=== PATIENT | female | born 1980 | race Caucasian/White ===

== ENCOUNTER 2018-07-19 10:51 | Emergency (ER) | payer BC ==
--- OUTSIDE RECORDS SUMMARY | 2018-07-19 10:56 | XMS REPORT | Continuity of Care Document ---
:1980 External Reference #:[id number] Author Name Brianna Ram Care Team Providers Name Role Phone Amita Juárez M.D. Primary Care Physician Unavailable Payers Type Date Identification Numbers Payment Provider Subscriber Policy Number: [id number] [facility] Gloria John PayID: [id number] [address] [address] [place] [address] Policy Number: [id number] Cont: 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 Use Rarely consumes alcohol Tobacco Use Start: Unknown Patient has never smoked Recreational Drug Use Denies Drug Use Smoking Status Reviewed: 07/16/18 Patient has never smoked Allergies, Adverse Reactions, Alerts Date Description Reaction Status Severity Comments 07/16/2018 Morphine rash Active Medications Medication Date Status Form Strength Qnty SIG Indications Ordering Provider Escitalopram Active Tablets 10mg 30tabs one po F33.1 Amita Oxalate 018 daily MD Franck Vitamin 0 Active Tablets 28-0.8mg 1 by Unknown And Mineral 000 mouth every day Famotidine 0 Active Tablets 20mg 1 by Unknown 000 mouth every day Acetaminophen 0 Active Tablets 500mg 2 by Unknown 000 mouth twice a day Celecoxib 0 Active Capsules 200mg 1 by Unknown 000 mouth every day Immunizations Description No Information Available Vital Signs Date Vital Result Comment 07/16/2018 8:56am Height 60 inches 5'0" Weight 103.50 lb Heart Rate 75 /min BP Systolic Sitting 90 mmHg regular adult cuff left arm BP Diastolic Sitting 70 mmHg regular adult cuff left arm O2 % BldC Oximetry 98 % at rest on room air BMI (Body Mass Index) 20.2 kg/m2 Results Description No Information Available Procedures Description No Information Available Encounters Description No Information Available Plan of Treatment Future Appointment(s):08/27/2018 8:20 am - Amita Juárez MD at [facility] - [address]07/16/2018 - Amita Juárez MDG43.009 Migraine without aura, not intractable, without status migraComments:For your migraine headaches: Magnesium 500 at bedtimeVitamin B2 200mg qxrapW76.59 Other disorders of calcium yjvyvwlqxcL52.1 Major depressive disorder, recurrent, moderateNew Medication: Escitalopram Oxalate 10 mg - one po dailyComments:Current choice of daily preventative medication is LexaproPlease consider getting a therapy lampReviewed PHQ9, discussed with patient. The best chance of full treatment of depression is with medicationsuch as an SSRI combined with talk therapy. Please sign a release that will allow us to talk to your therapist.You can also benefit from regular exercise, spending time out of doors, with plenty of sunlight, and a healthy, balanced diet.Avoid over-use of alcohol and other substances such pain medications, marijuana, as these can worsen depression.Patient accepts referral to [facility], [facility]If you are feeling more at risk of harming yourself , please callthe Suicide Prevention hotline at [phone].Blood tests for metabolic causes of depression including thyroid (TSH,) vitamin B12 deficiency ( ordered or reviewed.)Follow up:Make follow-up appointment in 6 vvstsG89.00 Separation of muscle (nontraumatic), unspecified siteNew Therapy:Physical Therapy
[2018-07-19 10:58] VITALS: BP 125/74
--- NOTE | 2018-07-19 11:24 | UC ---
Back Pain HPI - HPI Summary HPI Summary: This AM was carrying toddler who is approx 40lbs and felt a sudden R lower back pain. Had difficulty walking. Has hx of lower herniated discs, 2016 MRI. She states it feels exactly how her pain felt in 2016. denies saddle paresthesia, urinary incontinence, numbness in LE. Feels lower back spasms very strongly. - History of Current Complaint Chief Complaint: UCBackPain Stated Complaint: BACK INJURY Time Seen by Provider: 07/19/18 11:00 Hx Obtained From: Patient Hx Last Menstrual Period: breat feeding ?: No Onset/Duration: Sudden Onset Timing: Constant Severity Initially: Moderate Severity Currently: Moderate Pain Intensity: 7 Pain Scale Used: 0-10 Numeric Back Pain: Is Discrete @ - R lower back Character: Sharp Aggravating Factor(s): Movement, Walking Alleviating Factor(s): Nothing Related History: Previous Back Injury - Allergies/Home Medications Allergies/Adverse Reactions: Allergies Allergy/AdvReac Type Severity Reaction Status Date / Time morphine Allergy Rash Verified 07/19/18 10:59 Home Medications: Home Medications B2/Magnesium Cit,Oxid/Feverfew 1 tab PO DAILY 07/19/18 [History Confirmed ] Escitalopram Oxalate [Lexapro 10 mg] 10 mg PO DAILY 07/19/18 [History Confirmed 07/19/18] Magnesium Oxide [Mag-Oxide] 200 mg PO DAILY 07/19/18 [History Confirmed 07/19/18 ] PMH/Surg Hx/FS Hx/Imm Hx - Additional Past Medical History Additional PMH: herniated discs Previously Healthy: Yes - Surgical History Surgical History: Yes Surgery Procedure, Year, and Place: oral - Social History Alcohol Use: None Substance Use Type: None Smoking Status (MU): Never Smoked Tobacco Review of Systems All Other Systems Reviewed And Are Negative: Yes Constitutional: Positive: Negative Skin: Positive: Negative Respiratory: Positive: Negative Cardiovascular: Positive: Negative Musculoskeletal: Positive: Other: - +BACK PAIN Neurological: Positive: Negative Is Patient Immunocompromised?: No Physical Exam Triage Information Reviewed: Yes Appearance: Well-Appearing Vital Signs: Initial Vital Signs Temp 97.8 F 07/19/18 10:55 Pulse 68 07/19/18 10:55 Resp 16 07/19/18 10:55 BP 125/74 07/19/18 10:55 Pulse Ox 100 07/19/18 10:55 Vital Signs Reviewed: Yes Respiratory Exam: Normal Cardiovascular Exam: Normal Musculoskeletal: Positive: Strength Limited @ - lower back, ROM Limited @ - lower back, Other: - pain w/ walking. pain upon palpation at R lower back. Skin Exam: Normal Diagnostics - Radiology No standard instances Radiology Interpretation Completed By: Radiologist Summary of Radiographic Findings: Attending Doctor: Jimbo Nelson ([id number]) . Telephone Station Repairer: Omkar Winters ([id number]). Surveillance Supervisor: [place] (NUANCE ). Report Date: 07/19/2018 11:19:00. Report Status: Final. ====== Begin of Report Content . Patient Name : AMADOU LUCIA Medical Record#: [id number]. Ordering Physician: Rosa RAYO Acct.#: [id number]. : 1980 Age: 38 Sex: F Location: [facility]. Exam Date: 07/19/18 1119 ADM Status: REG ER. Order Information : SP LUMBAR AP/LAT 2-3 VIEWS. Accession Number: [id number]. CPT: 65226. HISTORY: sudden lower back pain. COMPARISONS: None. VIEWS: 3 , Frontal, lateral, and coned-down lateral sacral views of the lumbar spine. FINDINGS: ALIGNMENT: There is straightening of the normal lumbar lordosis. VERTEBRAL BODIES: The vertebral body heights are normal. The interpedicular distances are. normal. JOINTS: The facet joints are normal. INTERVERTEBRAL DISCS: There is mild diffuse loss of intervertebral disc height. SOFT TISSUE: There are multiple calculi overlying the right renal parenchymal shadow. including a 1.3 cm calculus of the lower pole. OTHER: The pelvis is unremarkable. The lung bases are clear. IMPRESSION: STRAIGHTENING OF THE LUMBAR LORDOSIS. RIGHT NEPHROLITHIASIS. . <Electronically signed by Omkar Winters MD in [place]> 12/13/18 1156. Dictated By: Omkar Winters MD. Dictated Date/Time: 07/19/18 115. Transcribed Date/Time: 07/19/18 115. Copy to: CC:Amita Juárez MD; Rosa RAYO; Jimbo Nelson MD. Imaging - [facility] - [facility] - [facility]. [address] [place] [address]. ph ([phone]) ph ([phone]) ph ([phone]). End of Report Content Back Pain Course/Dx - Course Course Of Treatment: Sudden lower back pain after lifting child. Spasming moderate and cyclobenzaprine rx'd. No signs of radiculopathy although pt has a hx of this. Plan is to obtain first step of imaging w/ the hopes she gets a f/u MRI outpt. - Differential Dx/Diagnosis Differential Diagnosis/HQI/PQRI: Herniated Disc, Strain, Sprain Provider Diagnosis: Low back strain Discharge - Sign-Out/Discharge Documenting (check all that apply): Patient Departure All imaging exams completed and their final reports reviewed: Yes - Discharge Plan Condition: Good Disposition: HOME Prescriptions: Cyclobenzaprine (NF) [Cyclobenzaprine 5 MG (NF)] 5 mg PO TID PRN #9 tab PRN Reason: Pain methylPREDNISolone [Medrol] 4 mg PO DAILY #5 tab.ds.pk Patient Education Materials: Low Back Strain (ED) Forms: *Work Release Referrals: Amita Juárez MD [Primary Care Provider] - Additional Instructions: Consider a f/u MRI from 2016. Breast-Feeding Considerations It is not known if cyclobenzaprine is excreted in breast milk. Because cyclobenzaprine is closely related to tricyclic antidepressants, some of which are excreted in breast milk, the icu tech recommends that caution be exercised when administering cyclobenzaprine to women. - Billing Disposition and Condition Condition: GOOD Disposition: Home
[2018-07-19] MEDS ORDERED: Cyclobenzaprine TAB* 10 MG PO ONE (12:05)
== END 2018-07-19 12:15 | disposition home or self-care (01) ==
LOC: UCEAST 10:51
DX: S39.012A Strain of muscle, fascia and tendon of lower back, initial encounter (principal); X50.0XXA Overexertion from strenuous movement or load, initial encounter; Y93.89 Activity, other specified; Y92.9 Unspecified place or not applicable; Z88.5 Allergy status to narcotic agent
CPT/HCPCS: 72100; 99212; A9270-GY; G0463

== ENCOUNTER 2019-10-03 13:44 | Emergency (ER) | payer BC, OTHER ==
--- OUTSIDE RECORDS SUMMARY | 2019-10-03 13:58 | XMS REPORT | Continuity of Care Document ---
:1980 External Reference #:[id number] Author Name Barbara Pimentel MD (transmitted by agent of provider Rosa Jane) Address [address] [place] [address] Care Team Providers Name Role Phone Amita Juárez M.D. - Family Medicine Care Team Information Database Development Project Manager [phone] Problems Description No Information Available Social History Type Date Description Comments Sex Unknown Tobacco Use Start: Unknown Never Smoked Cigarettes Smoking Status Reviewed: 08/20/19 Never Smoked Cigarettes ETOH Use Rarely consumes alcohol Tobacco Use Start: Unknown Patient has never smoked Recreational Drug Use Denies Drug Use Exercise Type/Frequency Does not exercise Allergies, Adverse Reactions, Alerts Active Allergies Reaction Severity Comments Date Morphine rash 07/16/2018 Medications Active Medications SIG Qnty Indications Ordering Date Provider Escitalopram Oxalate Take one and a 136tabs F33.1 Drea Smith, 2017 10mg half tab by Tablets mouth daily Cyclobenzaprine HCL as needed Rosa Albarran 5mg T, PA Tablets Magnesium Oxide 1 tabs every Unknown 500mg day Capsules Riboflavin 2 every day Unknown 100mg Capsules Acetaminophen 2 tablets by Unknown 325mg Tablets mouth every 6 hours as needed for pain/fever History Medications Cephalexin one by mouth 30caps Samantha Farmer, 06/24/2019 - 500mg three times a M.D. 07/16/2019 Capsules day for 10 days Sodium Chloride Normal saline N17.9 Kathia 02/22/2019 - 0.9% 500cc/hr for 2 MD Lucia 07/16/2019 Solution hours ( total 1 liter) Immunizations Description No Information Available Vital Signs Date Vital Result Comment 08/20/2019 3:37pm Height 60 inches 5'0" Weight 114.00 lb Heart Rate 63 /min BP Systolic Sitting 99 mmHg left arm reg cuff BP Diastolic Sitting 66 mmHg left arm reg cuff O2 % BldC Oximetry 99 % BMI (Body Mass Index) 22.3 kg/m2 07/17/2019 4:01pm Height 60 inches 5'0" Weight 112.00 lb w/ shoes Heart Rate 60 /min BP Systolic Sitting 100 mmHg BP Diastolic Sitting 65 mmHg BMI (Body Mass Index) 21.9 kg/m2 Results Test Acquired Date Facility Test Result H/L Range Note Comp Metabolic 07/16/2019 [facility] Sodium 138 mmol/L Normal 135-[address] [place] [address] [phone] Potassium 4.2 mmol/L Normal 3.5-5.0 Chloride 102 mmol/L Normal 101-111 Co2 Carbon Dioxide 29 mmol/L Normal 22-32 Anion Gap 7 mmol/L Normal 2-11 Glucose 84 mg/dL Normal 70-100 Blood Urea Nitrogen 24 mg/dL Normal 6-24 Creatinine 0.89 mg/dL Normal 0.51-0.95 BUN/Creatinine Ratio 27.0 High 8-20 Calcium 9.8 mg/dL Normal 8.6-10.3 Total Protein 7.0 g/dL Normal 6.4-8.9 Albumin 4.5 g/dL Normal 3.2-5.2 Globulin 2.5 g/dL Normal 2-4 Albumin/Globulin Ratio 1.8 Normal 1-3 Total Bilirubin 0.40 mg/dL Normal 0.2-1.0 Alkaline Phosphatase 73 U/L Normal 34-104 Alt 15 U/L Normal 7-52 Ast 19 U/L Normal 13-39 Egfr Non- 71.4 >60 Egfr 86.4 >60 1 Cytology 06/27/2019 [facility] Cytology SEE RESULT BELOW [address] [place] [address] [phone] PDFReport SEE IMAGE Laboratory test 05/28/2019 [facility] Stone <pending> finding [address] [place] [address] [phone] Basic Metabolic 04/29/2019 [facility] Sodium 140 mmol/L Normal 135-[address] [place] [address] [phone] Potassium 4.1 mmol/L Normal 3.5-5.0 Chloride 103 mmol/L Normal 101-111 Co2 Carbon Dioxide 30 mmol/L Normal 22-32 Anion Gap 7 mmol/L Normal 2-11 Calcium 10.2 mg/dL Normal 8.6-10.3 Glucose 77 mg/dL Normal 70-100 Blood Urea Nitrogen 26 mg/dL High 6-24 Creatinine 0.88 mg/dL Normal 0.51-0.95 BUN/Creatinine Ratio 29.5 High 8-20 Egfr Non- 72.7 >60 Egfr 88.0 >60 3 CBC Auto 04/29/2019 [facility] White Blood 6.3 10^3/uL Normal 3.5-10.[address] [place] [address] [phone] Red Blood Count 5.02 10^6/uL High 3.70-4.87 Hemoglobin 15.1 g/dL Normal 12.0-16.0 Hematocrit 44 % Normal 35-47 Mean Corpuscular Volume 88 fL Normal 80-97 Mean Corpuscular Hemoglobin 30 pg Normal 27-31 Mean Corpuscular HGB Conc 34 g/dL Normal 31-36 Red Cell Distribution Width 13 % Normal 10-15 Platelet Count 277 10^3/uL Normal 150-450 Mean Platelet Volume 7.8 fL Normal 7.4-10.4 Abs Neutrophils 3.4 10^3/uL Normal 1.5-7.7 Abs Lymphocytes 1.7 10^3/uL Normal 1.0-4.8 Abs Monocytes 0.6 10^3/uL Normal 0-0.8 Abs Eosinophils 0.5 10^3/uL Normal 0-0.6 Abs Basophils 0.1 10^3/uL Normal 0-0.2 Abs Nucleated RBC 0.0 10^3/uL Granulocyte % 53.7 % Lymphocyte % 27.2 % Monocyte % 9.8 % Eosinophil % 7.3 % Basophil % 2.0 % Nucleated Red Blood Cells % 0.0 Immunoglobulins 04/29/2019 [facility] Immunoglobulin G 1010 767 - 4 Serum Quant [address] mg/dL 1590 [place] [address] [phone] Immunoglobulin M 88 mg/dL 37 - 286 Immunoglobulin A 113 mg/dL 61 - 356 Sheldahl/Lambda Free 04/29/2019 [facility] Sheldahl Free 1.93 mg/dL 5 Light Chains Ser [address] [place] [address] [phone] Lambda Free Light Chain 1.23 mg/dL 6 Sheldahl/Lambda Free Light Chain 1.57 7 Protein 04/29/2019 [facility] Total 6.8 g/dL 6.3 - Electrophoresis [address] Protein(Pep) 7.9 [place] [address] [phone] Albumin 3.7 g/dL 3.4-4.7 Alpha-1 Globulin 0.2 g/dL 0.1-0.3 Alpha-2 Globulin 1.0 g/dL 0.6-1.0 Beta Globulin 0.9 g/dL 0.7-1.2 Gamma Globulin 1.0 g/dL 0.6-1.6 Albumin/Globulin Ratio 1.19 Impression See Comment 8 Urine Culture And 04/29/2019 [facility] Urine Culture SEE RESULT [address] [place] [address] [phone] Urinalysis Profile 04/29/2019 [facility] Urine Color Yellow [address] [place] [address] [phone] Urine Appearance Cloudy Urine Specific Ruby 1.006 Low 1.010-1.030 Urine pH 7.0 Normal 5-9 Urine Urobilinogen Negative Negative Urine Ketones Negative Negative Urine Protein Negative Negative Urine Leukocytes Trace Abnormal Negative Urine Blood Negative Negative Urine Nitrite Negative Negative Urine Bilirubin Negative Negative Urine Glucose Negative Negative Urine White Blood Cell Trace(0-5/hpf) Absent Urine Red Blood Cell Absent Absent Urine Bacteria Absent Absent Urine Squamous Epithelial Cell Present Abnormal Absent Pthi 04/29/2019 [facility] PTH Intact 3.2 pg/mL Low [address] [place] [address] [phone] Calcium (PTH Intact) 10.4 mg/dL High 8.6-10.3 Laboratory test 04/29/2019 [facility] Vitamin D 55.4 ng/mL High 20-[address] Total 25(Oh) [place] [address] [phone] Calcium 10.5 mg/dL High 8.6-10.3 Basic Metabolic 02/22/2019 [facility] Sodium 139 mmol/L Normal 135-[address] [place] [address] [phone] Potassium 4.2 mmol/L Normal 3.5-5.0 Chloride 105 mmol/L Normal 101-111 Co2 Carbon Dioxide 29 mmol/L Normal 22-32 Anion Gap 5 mmol/L Normal 2-11 Glucose 88 mg/dL Normal 70-100 Blood Urea Nitrogen 21 mg/dL Normal 6-24 Creatinine 1.00 mg/dL High 0.51-0.95 BUN/Creatinine Ratio 21.0 High 8-20 Calcium 9.5 mg/dL Normal 8.6-10.3 Egfr Non- 62.7 >60 Egfr 75.9 >60 11 Laboratory test 02/18/2019 [facility] PTH Related <pending> [address] [place] [address] [phone] Angiotensin Converting Enzyme <pending> Uric Acid <pending> Laboratory test 02/18/2019 [facility] Magnesium <pending> finding [address] [place] [address] [phone] Supersaturation 02/18/2019 [facility] Calcium Oxalate 1.45 DG 13 Profile, [address] [place] [address] [phone] Brushite Crystal 1.15 DG Abnormal 14 Hydroxyapatite Crystal 6.60 DG Abnormal 15 Uric Acid Crystal -4.75 DG 16 Sodium Urate Crystal 0.78 DG 17 Collection Duration 24 h Volume 1900 mL Interpretation See Comment 18 Sodium, 24 Hr U 146 mmol/24h 41 - 227 Potassium,24hr U 84 mmol/24h Abnormal 17 - 77 Calcium, 24 Hr U 171 mg/24h <200 19 Magnesium, 24 Hr, U 152 mg/24h 51 - 269 20 Chloride, 24 Hr, U 129 mmol/24h 40 - 224 Phosphorus, 24 Hr, U 969 mg/24h <1100 Sulfate, 24 Hr, U 21 mmol/24h 7 - 47 21 Citrate Excretion, U 325 mg/24h 264 - 1191 22 Oxalate, 24 Hr, U 0.32 mmol/24h 23 Oxalate, mg/24h 28.2 mg/24h 9.7 - 40.5 pH, 24 Hr, U 6.8 4.5 - 8.0 24 Uric Acid, 24 Hr, U 418 mg/24h 25 Creatinine, 24 Hr, U 1007 mg/24h 26 Osmolality 458 mOsm/kg 150 - 1150 27 Ammonium, 24 Hr, U 17 mmol/24h 15 - 56 28 Urea Nitrogen,24 Hr, U 12.2 g/24h 5.0 - 16.0 Protein Catabolic Rate, U 101 g/24h 56 - 125 29 Urine Magnesium 02/18/2019 [facility] Urine Magnesium 152 mg/ 24h 51 - 269 [address] 24HR [place] [address] [phone] Urine Collection Duration 24 h Urine Volume 1900 mL Urine Magnesium mg/dL 8 mg/dL 31 Laboratory test 02/18/2019 [facility] Urine Magnesium <pending> finding [address] [place] [address] [phone] Laboratory test 02/18/2019 [facility] Creatinine <pending> finding [address] [place] [address] [phone] Calcium,24 02/18/2019 [facility] Urine Calcium 171 mg/24h < 200 32 Hour,Urine [address] [place] [address] [phone] Urine Collection Duration 24 h Urine Volume 1900 mL Urine Calcium Conc 9 mg/dL 33 Laboratory test 02/18/2019 [facility] Calcium Random <pending> finding [address] [place] [address] [phone] Laboratory test 02/18/2019 [facility] Vitamin D Total <pending> finding [address] 25(Oh) [place] [address] [phone] Creatinine 24HR 02/18/2019 [facility] Urine Collection 24 hr Urine [address] [place] [address] [phone] Urine Total Volume 1900 mL Urine Creatinine Concentration 54.24 mg/dL Urine Creatinine/24 Hour 1030.56 mg/24Hr Normal 600-1800 Laboratory test finding 02/18/2019 [facility] Phosphorus < pending> [address] [place] [address] [phone] Calcium <pending> Alkaline Phosphatase <pending> Protein 02/18/2019 [facility] Total 6.6 g/dL 6.3 - Electrophoresis [address] Protein(Pep) 7.9 [place] [address] [phone] Albumin 3.6 g/dL 3.4-4.7 Alpha-1 Globulin 0.2 g/dL 0.1-0.3 Alpha-2 Globulin 0.9 g/dL 0.6-1.0 Beta Globulin 0.9 g/dL 0.7-1.2 Gamma Globulin 1.0 g/dL 0.6-1.6 Albumin/Globulin Ratio 1.19 Impression See Comment 34 Laboratory test 02/18/2019 [facility] PTH Related 0.6 pmol/L < or = [address] Peptide 4.2 [place] [address] [phone] Sheldahl/Lambda 02/18/2019 [facility] Sheldahl Free 2.13 mg/dL Abnormal 36 Free Light [address] [place] [address] [phone] Lambda Free Light Chain 1.17 mg/dL 37 Sheldahl/Lambda Free Light Chain 1.82 Abnormal 38 Laboratory test 02/18/2019 [facility] Angiotensin 49 U/L 16 - 85 [address] [place] [address] [phone] Urine Magnesium 02/18/2019 [facility] Urine Magnesium 8 mg/dL [address] [place] [address] [phone] Creatinine Concentration 55 mg/dL Magnesium/Creatinine Ratio 0.145 mg/mg >=0.035 41 Urine Protein Elctrophoresis 02/18/2019 [facility] Albumin 100 % 42 (RDM) [address] [place] [address] [phone] Impression See Comment 43 Total Protein(Pep) Urine 4 mg/dL 44 Caclium, Random, 02/18/2019 [facility] Calcium, Random, 11 mg/ dL [address] [place] [address] [phone] Creatinine Concentration 57 mg/dL Calcium/Creatinine Ratio 0.19 mg/mg <0.20 46 Laboratory test 02/18/2019 [facility] Uric Acid 5.3 mg/dL Normal 2.3-6.[address] [place] [address] [phone] Phosphorus 4.1 mg/dL Normal 2.5-5.0 Magnesium 2.1 mg/dL Normal 1.9-2.7 Vitamin D Total 25(Oh) 63.7 ng/mL High 20-50 47 Comp Metabolic 02/18/2019 [facility] Sodium 137 mmol/L Normal 135-[address] [place] [address] [phone] Potassium 4.4 mmol/L Normal 3.5-5.0 Chloride 103 mmol/L Normal 101-111 Co2 Carbon Dioxide 29 mmol/L Normal 22-32 Anion Gap 5 mmol/L Normal 2-11 Glucose 92 mg/dL Normal 70-100 Blood Urea Nitrogen 23 mg/dL Normal 6-24 Creatinine 1.40 mg/dL High 0.51-0.95 BUN/Creatinine Ratio 16.4 Normal 8-20 Calcium 10.3 mg/dL Normal 8.6-10.3 Total Protein 6.9 g/dL Normal 6.4-8.9 Albumin 4.4 g/dL Normal 3.2-5.2 Globulin 2.5 g/dL Normal 2-4 Albumin/Globulin Ratio 1.8 Normal 1-3 Total Bilirubin 0.20 mg/dL Normal 0.2-1.0 Alkaline Phosphatase 73 U/L Normal 34-104 Alt 14 U/L Normal 7-52 Ast 20 U/L Normal 13-39 Egfr Non- 42.5 >60 Egfr 51.5 >60 48 Pthi 02/18/2019 [facility] Calcium (PTH 10.3 mg/dL Normal 8.6- 10.[address] Intact) [place] [address] [phone] PTH Intact 4.5 pg/mL Low 12-88 Laboratory test 02/18/2019 [facility] Creatinine Random 56.67 mg /dL finding [address] [place] [address] [phone] Urinalysis Profile 02/18/2019 [facility] Urine Color Yellow [address] [place] [address] [phone] Urine Appearance Cloudy Urine Specific Ruby 1.010 Normal 1.010-1.030 Urine pH 7.0 Normal 5-9 Urine Urobilinogen Negative Negative Urine Ketones Negative Negative Urine Protein Negative Negative Urine Leukocytes Negative Negative Urine Blood Negative Negative Urine Nitrite Negative Negative Urine Bilirubin Negative Negative Urine Glucose Negative Negative CBC Auto 02/18/2019 [facility] White Blood 6.6 10^3/uL Normal 3.5-10.[address] [place] [address] [phone] Red Blood Count 4.65 10^6/uL Normal 3.70-4.87 Hemoglobin 13.4 g/dL Normal 12.0-16.0 Hematocrit 41 % Normal 35-47 Mean Corpuscular Volume 89 fL Normal 80-97 Mean Corpuscular Hemoglobin 29 pg Normal 27-31 Mean Corpuscular HGB Conc 33 g/dL Normal 31-36 Red Cell Distribution Width 13 % Normal 10-15 Platelet Count 348 10^3/uL Normal 150-450 Mean Platelet Volume 7.6 fL Normal 7.4-10.4 Abs Neutrophils 3.7 10^3/uL Normal 1.5-7.7 Abs Lymphocytes 2.1 10^3/uL Normal 1.0-4.8 Abs Monocytes 0.4 10^3/uL Normal 0-0.8 Abs Eosinophils 0.2 10^3/uL Normal 0-0.6 Abs Basophils 0.1 10^3/uL Normal 0-0.2 Abs Nucleated RBC 0.0 10^3/uL Granulocyte % 56.3 % Lymphocyte % 32.1 % Monocyte % 6.6 % Eosinophil % 3.0 % Basophil % 2.0 % Nucleated Red Blood Cells % 0.0 1 Because ethnic data is not always readily available, this report includes an eGFR for both -Americans and non- Americans. The National Kidney Disease Education Program (NKDEP) does not endorse the use of the MDRD equation for patients that are not between the ages of 18 and 70, are , have extremes of body size, muscle mass, or nutritional status, or are non- or non-. According to the National Kidney Foundation, irrespective of diagnosis, the stage of the disease is based on the level of kidney function: Stage Description GFR(mL/min/1.73 m(2)) 1 Kidney damage with normal or decreased GFR 90 2 Kidney damage with mild decrease in GFR 60-89 3 Moderate decrease in GFR 30-59 4 Severe decrease in GFR 15-29 5 Kidney failure <15 (or dialysis) 2 SEE RESULT BELOW Name: GLORIA LUCIA : [address]: Drea Smith MD Acct: [id number] Unit: [id number] AGE: 39 Location: [facility] Re06/27/19 SEX: F Status: REG REF SPEC: [id number] ERIN: 06/27/[address] [facility] [address]: Drea Smith MD REQ: [id number] RECD: 06/28/19 STATUS: SOUT _ ORDERED: TP IMAGE ANALYS, HPV/Thin Prep COMMENTS: [id number] FINAL DIAGNOSIS Negative for Intraepithelial lesion or Malignancy HPV RESULTS Date Time Test Result Flag (u) Normal Range 06/27/19 1405 HPV PETE Negative Negative The high-risk HPV types detected by the assay include: 16, 18, 31, 33, 35, 39, 45, 51, 52, 56, 58, 59, 66, and 68. SPECIMEN(S) RECEIVED A. Ectocervical/Endocervical CYTOLOGY ADEQUACY Specimen Adequacy: Satisfactory of evaluation Transformation zone component identified CONTINUED ON NEXT PAGE DEPARTMENT OF PATHOLOGY, [address] [place] [address] Jhon Carr M.D. Director [facility] # [id number] CYTOLOGY PATIENT INFORMATION Patient Information: HPV: High risk HPV RNA testing regardless of pap results. Actual Specimen Date: 06/27/19 LMP If Unknown: Last Menstrual Period Not Given. ?: N Post Menopausal?: N Hysterectomy?: N Previous Abnormal Pap Smears?:N Signed by and Reported on: Hector ChakrabortyAYUSH (ASCP) [id number] This Pap test was evaluated with the assistance of the [employer] Test Imaging System. Due to cytologic findings at the clinical data manager microscope, comprehensive manual rescreening by a Oracle Database Consultant may be required. The Pap Smear is a screening test designed to aid in the detection of premalignant and malignant conditions of the uterine cervix. It is not a diagnostic procedure and should not be used as the sole means of detecting cervical cancer. Both false- positive and false- negative reports do occur. Depending on your risk status, a Pap smear should be obtained and evaluated every 1-3 years. END OF REPORT DEPARTMENT OF PATHOLOGY, [address] [place] [address] Jhon Carr M.D. Director [facility] # [id number] 3 Because ethnic data is not always readily available, this report includes an eGFR for both -Americans and non- Americans. The National Kidney Disease Education Program (NKDEP) does not endorse the use of the MDRD equation for patients that are not between the ages of 18 and 70, are , have extremes of body size, muscle mass, or nutritional status, or are non- or non-. According to the National Kidney Foundation, irrespective of diagnosis, the stage of the disease is based on the level of kidney function: Stage Description GFR(mL/min/1.73 m(2)) 1 Kidney damage with normal or decreased GFR 90 2 Kidney damage with mild decrease in GFR 60-89 3 Moderate decrease in GFR 30-59 4 Severe decrease in GFR 15-29 5 Kidney failure <15 (or dialysis) 4 Test Performed by: [facility] [place] [address] Primary Care Pediatrician: Jimbo Boudreaux M.D. Ph.D.; CLIA# [id number] 5 REFERENCE VALUE 0.3300-1.94 6 REFERENCE VALUE 0.5700-2.63 7 REFERENCE VALUE 0.2600-1.65 Test Performed by: [facility] [place] [address] Primary Care Pediatrician: Jimbo Boudreaux M.D. Ph.D.; CLIA# [id number] 8 RESULT: No apparent monoclonal protein on serum electrophoresis. Test Performed by: [facility] [place] [address] Primary Care Pediatrician: Jimbo Boudreaux M.D. Ph.D.; CLIA# [id number] 9 SEE RESULT BELOW Name: GLORIA LUCIA : [address]: Amita Juárez MD Acct: [id number] Unit: [id number] AGE: 38 Location: LAB Re04/29/19 SEX: F Status: REG REF SPEC: [id number] ERIN: 04/29/[address] [facility] [address]: Kathia Myers MD REQ: [id number] RECD: 04/29/19 STATUS: TAD LARIOS DR: Amita Juárez MD _ SOURCE: URINE SPDESC: ORDERED: Urine Culture Procedure Result Reported Site Urine Culture Final 04/30/19- 0850 ML No growth of clinically significant organisms * ML - Main Lab . END OF REPORT DEPARTMENT OF PATHOLOGY, [address] [place] [address] Jhon Carr M.D. Director [facility] # [id number] 10 Total 25-Hydroxyvitamin D2 and D3 (25-OH-VitD) <10 ng/mL (severe deficiency) 10-19 ng/mL (mild to moderate deficiency) 20-50 ng/mL (optimum levels) 51-80 ng/mL (increased risk of hypercalciuria) >80 ng/mL (toxicity possible) 11 Because ethnic data is not always readily available, this report includes an eGFR for both -Americans and non- Americans. The National Kidney Disease Education Program (NKDEP) does not endorse the use of the MDRD equation for patients that are not between the ages of 18 and 70, are , have extremes of body size, muscle mass, or nutritional status, or are non- or non-. According to the National Kidney Foundation, irrespective of diagnosis, the stage of the disease is based on the level of kidney function: Stage Description GFR(mL/min/1.73 m(2)) 1 Kidney damage with normal or decreased GFR 90 2 Kidney damage with mild decrease in GFR 60-89 3 Moderate decrease in GFR 30-59 4 Severe decrease in GFR 15-29 5 Kidney failure <15 (or dialysis) 12 COLLECTEDE 02/17 TO 02/18 PT GETTING BLOOD DRAWN IN [facility] 13 REFERENCE VALUE Reference Mean= 1.77 PDF Report available at: [email or web address] REFERENCE VALUE Reference Mean= 0.21 15 REFERENCE VALUE Reference Mean= 3.96 16 REFERENCE VALUE Reference Mean= 1.04 17 REFERENCE VALUE Reference Mean= 1.76 18 The DG is related to supersaturation. DG is negative for undersaturated solutions, zero for solutions at the solubility product, and positive for saturated solutions. Any value greater than the Reference Mean is considered a risk for the respective crystal type formation. 19 ADDITIONAL INFORMATION This test was developed and its performance characteristics determined by [facility] in a manner consistent with CLIA requirements. This test has not been cleared or approved by the U.S. Food and Drug Administration. 20 ADDITIONAL INFORMATION This test has been modified from the rope maker's instructions. Its performance characteristics were determined by [facility] in a manner consistent with CLIA requirements. This test has not been cleared or approved by the U.S. Food and Drug Administration. 21 ADDITIONAL INFORMATION This test was developed and its performance characteristics determined by [facility] in a manner consistent with CLIA requirements. This test has not been cleared or approved by the U.S. Food and Drug Administration. 22 ADDITIONAL INFORMATION This test was developed and its performance characteristics determined by [facility] in a manner consistent with CLIA requirements. This test has not been cleared or approved by the U.S. Food and Drug Administration. 23 REFERENCE VALUE 0.11 - 0.46 ADDITIONAL INFORMATION This test was developed and its performance characteristics determined by [facility] in a manner consistent with CLIA requirements. This test has not been cleared or approved by the U.S. Food and Drug Administration. 24 ADDITIONAL INFORMATION This test was developed and its performance characteristics determined by [facility] in a manner consistent with CLIA requirements. This test has not been cleared or approved by the U.S. Food and Drug Administration. 25 REFERENCE VALUE <750 (Diet-dependent) ADDITIONAL INFORMATION This test has been modified from the rope maker's instructions. Its performance characteristics were determined by [facility] in a manner consistent with CLIA requirements. This test has not been cleared or approved by the U.S. Food and Drug Administration. 26 REFERENCE VALUE The expected creatinine excretion per 24 hrs for females: 601-1689 mg/24 hrs or 9-26 mg/kg/24 hrs. Note: To convert to mg/kg of body weight/24 hrs,divide the mg/24 h result by the weight in kg. 27 ADDITIONAL INFORMATION This test was developed and its performance characteristics determined by [facility] in a manner consistent with CLIA requirements. This test has not been cleared or approved by the U.S. Food and Drug Administration. 28 ADDITIONAL INFORMATION This test has been modified from the rope maker's instructions. Its performance characteristics were determined by [facility] in a manner consistent with CLIA requirements. This test has not been cleared or approved by the U.S. Food and Drug Administration. 29 Test Performed by: [facility] - [address] [id number] 30 ADDITIONAL INFORMATION This test has been modified from the rope maker's instructions. Its performance characteristics were determined by [facility] in a manner consistent with CLIA requirements. This test has not been cleared or approved by the U.S. Food and Drug Administration. 31 Test Performed by: [facility] - [address] [id number] 32 ADDITIONAL INFORMATION This test has been modified from the rope maker's instructions. Its performance characteristics were determined by [facility] in a manner consistent with CLIA requirements. This test has not been cleared or approved by the U.S. Food and Drug Administration. 33 Test Performed by: [facility] - [address] [id number] 34 RESULT: No apparent monoclonal protein on serum electrophoresis. Test Performed by: [facility] - [address] [id number] 35 ADDITIONAL INFORMATION This test was developed and its performance characteristics determined by [facility] in a manner consistent with CLIA requirements. This test has not been cleared or approved by the U.S. Food and Drug Administration. Test Performed by: [facility] - [facility] [address] [place] [id number] 36 REFERENCE VALUE 0.3300-1.94 37 REFERENCE VALUE 0.5700-2.63 38 Elevated free light chain ratios between 1.66 and 3.00 may occur due to polyclonal hypergammaglobulinemia or impaired renal clearance. An isolated increased free light chain ratio in this range should be interpreted with caution, and clinical correlation is recommended. REFERENCE VALUE 0.2600-1.65 Test Performed by: [facility] - [address] [address] 39 Test Performed by: [address] [id number] 40 ADDITIONAL INFORMATION This test has been modified from the rope maker's instructions. Its performance characteristics were determined by [facility] in a manner consistent with CLIA requirements. This test has not been cleared or approved by the U.S. Food and Drug Administration. 41 Test Performed by: [address] [address] 42 4 mg/dL 43 RESULT: Albumin is the only protein detected. 44 ADDITIONAL INFORMATION On 01/31/2017 the total protein assay method changed resulting in approximately a 15% increase in protein values. Test Performed by: [facility] - [facility] [address] [place] [id number] Test Performed by: [address] [id number] 45 ADDITIONAL INFORMATION This test has been modified from the rope maker's instructions. Its performance characteristics were determined by [facility] in a manner consistent with CLIA requirements. This test has not been cleared or approved by the U.S. Food and Drug Administration. 46 Test Performed by: [address], [place] [address] 47 Total 25-Hydroxyvitamin D2 and D3 (25-OH-VitD) <10 ng/mL (severe deficiency) 10-19 ng/mL (mild to moderate deficiency) 20-50 ng/mL (optimum levels) 51-80 ng/mL (increased risk of hypercalciuria) >80 ng/mL (toxicity possible) 48 Because ethnic data is not always readily available, this report includes an eGFR for both -Americans and non- Americans. The National Kidney Disease Education Program (NKDEP) does not endorse the use of the MDRD equation for patients that are not between the ages of 18 and 70, are , have extremes of body size, muscle mass, or nutritional status, or are non- or non-. According to the National Kidney Foundation, irrespective of diagnosis, the stage of the disease is based on the level of kidney function: Stage Description GFR(mL/min/1.73 m(2)) 1 Kidney damage with normal or decreased GFR 90 2 Kidney damage with mild decrease in GFR 60-89 3 Moderate decrease in GFR 30-59 4 Severe decrease in GFR 15-29 5 Kidney failure <15 (or dialysis) Procedures Date Code Description Status 08/17/2018 [id number] Bone Mineral Density Test Completed Medical Devices Description No Information Available Encounters Type Date Location Provider Dx Diagnosis Office Visit 07/17/2019 [facility] Jesus Hoover MD E83.52 Hypercalcemia 4:00p [facility] M85.80 Oth disrd of bone density and structure, unspecified site N20.0 Calculus of kidney Office Visit 06/27/2019 1:00p [facility] Internal Drea Smith, Z00.00 [facility]/o abnormal findings G43.009 Migraine w/o aura, not intractable, w/o status migrainosus F33.1 Major depressive disorder, recurrent, moderate Z12.4 Encounter for screening for malignant neoplasm of cervix N61.0 Mastitis without abscess Office Visit 04/29/2019 1:00p [facility] Nephrology Kathia Myers, N20.0 Calculus of kidney D89.2 Hypergammaglobulinemia, unspecified 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 Office Visit 02/22/2019 2:00p [facility] Nephrology Kathia Myers, N20.0 Calculus of kidney D89.2 Hypergammaglobulinemia, unspecified 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 N17.9 Acute kidney failure, unspecified Assessments Date Code Description Provider 08/20/2019 E83.52 Hypercalcemia Barbara Pimentel MD 07/17/2019 E83.52 Hypercalcemia Jesus Hoover MD 07/17/2019 M85.80 Other specified disorders of bone density Jesus Hoover MD and structure, unspecified site 07/17/2019 N20.0 Calculus of kidney Jesus Hoover MD 06/27/2019 Z00.00 Encounter for general adult medical Drea Smith MD examination without abnormal findings 06/27/2019 G43.009 Migraine without aura, not intractable, Drea Smith MD without status migra 06/27/2019 F33.1 Major depressive disorder, recurrent, Drea Smith MD moderate 06/27/2019 Z12.4 Encounter for screening for malignant Drea Smith MD neoplasm of cervix 06/27/2019 N61.0 Mastitis without abscess Drea Smith MD 04/29/2019 N20.0 Calculus of kidney Kathia Myers MD 04/29/2019 D89.2 Hypergammaglobulinyusuf, unspecified Kathia Myers MD 04/29/2019 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 Kathia Myers MD 02/22/2019 N20.0 Calcchang of kidney Kathia Myers MD 02/22/2019 D89.2 Hypergammaglobulinemia, unspecified Kathia Myers MD 02/22/2019 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
[2019-10-03 14:13] LABS: ABS Basophils 0.1 10^3/ul (0-0.2); ABS Eosinophils 0.3 10^3/ul (0-0.6); ABS Lymphocytes 1.8 10^3/ul (1.0-4.8); ABS Monocytes 0.4 10^3/ul (0-0.8); ABS Neutrophils 4.1 10^3/ul (1.5-7.7); Eosinophil % 4.7 %; Hematocrit 44 % (35-47); Hemoglobin 14.9 g/dL (12.0-16.0); Lymphocyte % 26.5 %; Mean Corpuscular HGB Conc 34 g/dL (31-36); Mean Corpuscular Hemoglobin 31 pg (27-31); Mean Corpuscular Volume 90 fL (80-97); Mean Platelet Volume 7.8 fL (7.4-10.4); Nucleated Red Blood Cells % 0.2; Platelet Count 320 10^3/uL (150-450); Red Blood Count 4.88 10^6 /uL (3.70-4.87); Red Cell Distribution Width 13 % (10-15); White Blood Count 6.6 10^3/uL (3.5-10.8)
--- NOTE | 2019-10-03 14:13 | ED ---
- HPI Summary HPI Summary: Patient is a 39 y/o F presenting to [facility] with chief complaint of needlestick injury occurring about 45 minutes PHARM SPEC. 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 She was wearing gloves and did wash out the injury. The source patient had labs drawn, but the patient believes the source is low-risk. Patient denies any fever, chills, erythema of eyes, sore throat, CP , SOB, cough, abdominal pain, N/V, dysuria, hematuria, myalgia, edema, rash, or dizziness. Currently . She is UTD on all vaccinations. No previous HIV history. No past medical history. Nonsmoker, no alcohol use, no substance use. Medications reviewed. Allergies noted. - History of Current Complaint Chief Complaint: EDExposureBodyFluid Stated Complaint: NEEDLE STICK PER PT Time Seen by Provider: 10/03/19 13:58 Date of Incident: 10/03/19 Time of Incident: 13:15 Job Performing at Time of Incident: nurse (patient) administering chemotherapy injection Mechanism of Injury: Patient did not place safety on dirty needle after administering chemo injection, accidentally stuck self on index finger. Source patient thought to be low risk. Needlestick: Hollow Needle Blood on Needle: Yes Depth of Needlestick: Puncture Body Fluid Exposure: Blood Treatment PHARM SPEC: Cleaned Wound, Irrigation PMH/Surg Hx/FS Hx/Imm Hx Endocrine/Hematology History: Denies: Hx Diabetes Cardiovascular History: Denies: Hx Hypertension Musculoskeletal History: Denies: Hx Osteoporosis Sensory History: Reports: Hx Contacts or Glasses Opthamlomology History: Reports: Hx Contacts or Glasses - Cancer History Cancer Type, Location and Year: herniated discs,kidney stones,migraines - Surgical History Surgical History: Yes Surgery Procedure, Year, and Place: oral Infectious Disease History: No Infectious Disease History: Denies: Traveled Outside the [place] in Last 30 Days - Family History Known Family History: Negative: Renal Disease, Respiratory Disease - Social History Alcohol Use: None Hx Substance Use: No Substance Use Type: Reports: None Hx Tobacco Use: No Smoking Status (MU): Never Smoked Tobacco Have You Smoked in the Last Year: No Review of Systems Negative: Fever, Chills Negative: Erythema Negative: Sore Throat Negative: Chest Pain Negative: Shortness Of Breath, Cough Negative: Abdominal Pain, Vomiting, Nausea Negative: dysuria, hematuria Negative: Myalgia, Edema Positive: Other - puncture wound to right index finger. Negative: Rash Neurological/Mental Status: Other - Negative: dizziness All Other Systems Reviewed And Are Negative: Yes Physical Exam - Summary Physical Exam Summary: Constitutional: Well-developed, Well-nourished, Alert. (-) Distressed Skin: Puncture wound to the right index finger; Warm, Dry HENT: Normocephalic; Atraumatic Eyes: Conjunctiva normal Neck: Musculoskeletal ROM normal neck. (-) JVD, (-) Stridor, (-) Tracheal deviation Cardio: Rhythm regular, rate normal, Heart sounds normal; Intact distal pulses; The pedal pulses are 2+ and symmetric. Radial pulses are 2+ and symmetric. (-) Murmur Pulmonary/Chest wall: Effort normal. (-) Respiratory distress, (-) Wheezes, (-) Rales Abd: Soft, (-) tenderness, (-) Distension, (-) Guarding, (-) Rebound Musculoskeletal: (-) Edema Lymph: (-) Cervical adenopathy Neuro: Alert, Oriented x3 Psych: Mood and affect Normal Triage Information Reviewed: Yes Vital Signs On Initial Exam: Initial Vitals Temp Pulse Resp BP Pulse Ox 98.9 F 75 16 122/77 96 10/03/19 13:46 10/03/19 13:46 10/03/19 13:46 10/03/19 13:46 10/03/19 13:46 Vital Signs Reviewed: Yes Procedures - Sedation Patient Received Moderate/Deep Sedation with Procedure: No Diagnostics - Vital Signs Vital Signs Temp Pulse Resp BP Pulse Ox 10/03/19 13:46 98.9 F 75 16 122/77 96 - Laboratory Result Diagrams: 10/03/19 14:01 10/03/19 14:01 Lab Statement: Any lab studies that have been ordered have been reviewed, and results considered in the medical decision making process. Re-Evaluation - Re-Evaluation First Eval Re-Evaluation Time: 15:20 Comment: Results discussed, patient agreeable with discharge. Needlestick Course/Dx - Course Course Of Treatment: Patient is a 39 y/o female presenting with needlestick occurring around 1345 after administering chemotherapy injection and did not place safety on needle, resulting needle puncture wound on right index finger. Patient wearing gloves and irrigated wound. Source patient thought to be low risk but had labs drawn. No hx of HIV. Physical exam reveals puncture wound to the right index finger. Blood work reveals RBCs 4.88, creatinine 0.99, and BUN/ creatinine 20.2. Patient declines HAART at this time. Rapid HIV is negative. All results discussed. Patient will follow up with [email or web address]. Patient agreeable with plan. - Diagnoses Provider Diagnoses: Needlestick injury of finger Discharge ED - Sign-Out/Discharge Documenting (check all that apply): Patient Departure - Patient will be discharged home. - Discharge Plan Condition: Stable Disposition: HOME Patient Education Materials: Needle Stick Injuries (ED) Referrals: Amita Juárez MD [Primary Care Provider] - If Needed Additional Instructions: Follow up with [facility] today. Return to the emergency department for any new or worsening symptoms. - Attestation Statements Document Initiated by Janette: Yes Documenting Scribe: Nuria Batista Provider For Whom Janette is Documenting (Include Credential): Dr. Bhavin Domínguez MD Scribe Attestation: Nuria Kumar scribed for Dr. Bhavin Domínguez MD on 10/03/19 at 1623. Status of Scribe Document: Ready
[2019-10-03 14:29] LABS: ALT 12 U/L (7-52); AST 17 U/L (13-39); Albumin 4.7 g/dL (3.2-5.2); Albumin/Globulin Ratio 1.9 (1-3); Alkaline Phosphatase 67 U/L (34-104); Anion Gap 6 mmol/L (2-11); BUN/Creatinine Ratio 20.2 (8-20); Blood Urea Nitrogen 20 mg/dL (6-24); CO2 Carbon Dioxide 29 mmol/L (22-32); Calcium 10.1 mg/dL (8.6-10.3); Chloride 103 mmol/L (101-111); EGFR African American 76.4 (>60); EGFR Non-African American 63.1 (>60); Globulin 2.5 g/dL (2-4); Glucose 95 mg/dL (70-100); Potassium 4.4 mmol/L (3.5-5.0); Sodium 138 mmol/L (135-145); Total Protein 7.2 g/dL (6.4-8.9)
[2019-10-03 14:36] LABS: HCG Pregnancy < 0.60 mIU/mL
[2019-10-03 15:03] LABS: HIV 4th Generation Nonreactive (Nonreactive)
[2019-10-03 18:13] VITALS: BP 124/75
[2019-10-04 17:09] LABS: Hepatitis B Surface Antigen Nonreactive (Nonreactive)
[2019-10-04 17:26] LABS: Hepatitis B Surface Ab Immune (Immune)
[2019-10-04 17:27] LABS: Hepatitis C Antibody Negative (Negative)
== END 2019-10-03 15:30 | disposition home or self-care (01) ==
LOC: ED 13:44
DX: S61.230A Puncture wound without foreign body of right index finger without damage to nail, initial encounter (principal); W46.1XXA Contact with contaminated hypodermic needle, initial encounter; Y93.F9 Activity, other caregiving; Y92.238 Other place in hospital as the place of occurrence of the external cause; Y99.0 Civilian activity done for income or pay; Z88.5 Allergy status to narcotic agent
CPT/HCPCS: 36415; 80053; 84702; 85025; 86706; 86803; 87340; 87389; 99282